=== PATIENT | female | born 1940 | race Caucasian/White ===

== ENCOUNTER 2019-04-21 13:52 | Emergency (ER) | payer OTHER ==
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
[2019-04-21 14:32] VITALS: BP 116/71; PULSE 108; TEMP 98.3; BMI 21.3
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
== END 2019-04-21 17:04 ==
LOC: JER 13:52
DX: F03.91 Unspecified dementia, unspecified severity, with behavioral disturbance (principal); M54.5 Low back pain; G89.29 Other chronic pain
CPT/HCPCS: 99281-25